=== PATIENT | female | born 1950 | race Caucasian/White ===

== ENCOUNTER 2018-01-10 07:15 | Outpatient (CLI) | payer MEDICARE, BC, SELFPAY ==
--- NOTE | 2018-01-10 07:48 | DI.RAD_ITS ---
SYMPTOM/DIAGNOSIS: RIGHT HIP PAIN M25.551 PELVIS AND RIGHT HIP: Comparison is made with 15 May 2012. The hip joint spaces are well maintained. There are no significant degenerative changes. No lytic or blastic lesions or soft tissue calcifications seen. IMPRESSION: Negative pelvis and right hip.
--- NOTE | 2018-01-10 07:48 | DI.RAD_ITS ---
SYMPTOM/DIAGNOSIS: CHRONIC LOW BACK PAIN, M54.5 LUMBAR SPINE: Comparison is made with 15 May 2012. There is stable mild narrowing of the L4-5 disc space. There are small end plate osteophytes of the inferior end plate of L4 with some adjacent sclerosis. The findings are not significantly changed. The remaining disc spaces as well as vertebral bodies are well maintained in height. There are mild facet degenerative changes at L4-5 and L5-S1. No spondylolysis, spondylolisthesis or scoliosis seen. IMPRESSION: Degenerative disc changes at L4-5
== END 2018-01-10 07:35 ==
PROVIDERS: PCP Family Medicine; Visit Provider Family Medicine
DX: M25.551 Pain in right hip (principal); M54.5 Low back pain; M51.36 Other intervertebral disc degeneration, lumbar region
CPT/HCPCS: 72110; 73502

== ENCOUNTER 2018-09-09 11:42 | Outpatient (CLI) | payer MEDICARE, BC, SELFPAY ==
[2018-09-09 12:34] LABS: Abs Immature Grans 0.01 k/cumm (0.0-0.09); Absolute Basophil Count 0.03 k/cumm (0.0-0.2); Absolute Eosinophil Count 0.06 k/cumm (0.0-0.7); Absolute Lymphocyte Count 1.02 k/cumm (1.2-3.4); Absolute Monocyte Count 0.46 k/cumm (0.11-0.7); Absolute Neutrophil Count 2.16 k/cumm (1.2-6.7); Basophils % 0.8; Eosinophils % 1.6; HCT 38.4 % (36.0-46.0); HGB 12.6 g/dL (12.0-15.5); Immature Grans % 0.3; Lymphocytes % 27.3; Mean Corp. HGB Concentration 32.8 g/dL (32.0-36.0); Mean Corpuscular Hemoglobin 32.6 pg (27.0-33.0); Mean Corpuscular Volume 99.5 fL (80-95); Mean Platelet Volume 10.4 fL (8.0-11.0); Monocytes % 12.3; Neutrophils % 57.7; Platelet Count 209 x1000/uL (130-400); RBC 3.86 m/cumm (4.00-5.20); RBC Distribution Width 12.3 % (11.7-14.6); White Blood Cell Count 3.74 k/cumm (4.4-10.8)
[2018-09-09 12:58] LABS: ALT 38 U/L (12-78); AST 28 U/L (15-37); Alkaline Phosphatase 83 U/L (46-116); Anion Gap 9.5 mmol/L (3-11); BUN 18 mg/dL (7-18); Bilirubin, Total 0.4 mg/dL (0.2-1.0); CO2 28.5 mmol/L (21.0-32.0); CREATININE 0.79 mg/dL (0.55-1.02); Calcium 9.1 mg/dL (8.5-10.1); Chloride 104 mmol/L (98-107); Glucose 93 mg/dL (70-100); Sodium 142 mmol/L (136-145)
== END 2018-09-09 12:02 ==
PROVIDERS: PCP Family Medicine; Visit Provider Family Medicine
DX: I10 Essential (primary) hypertension (principal); D72.9 Disorder of white blood cells, unspecified
CPT/HCPCS: 36415; 80053; 85025

== ENCOUNTER 2019-09-09 21:45 | Outpatient (REF) | payer MEDICARE, BC, SELFPAY ==
[2019-09-09 21:56] LABS: HGB 12.5 g/dL (11.2-15.7); MCH 32.2 pg (27.0-33.0); MCHC 32.1 % (32.0-36.0); MCV 100.5 fL (80-95); MPV 11.4 fL (8.0-11.0); Platelet Count 209 10^3/uL (130-400); RBC 3.88 10^6/uL (3.93-5.22); RDW 12.2 % (11.7-14.6); RDW-SD 44.2 fL; WBC 4.22 10^3/uL (4.4-10.8)
[2019-09-10 08:15] LABS: Iron 127 ug/dL (50-170)
[2019-09-10 08:26] LABS: ALT 30 U/L (14-59); AST 20 U/L (15-37); Alkaline Phosphatase 72 U/L (46-116); Anion Gap 7.6 mmol/L (3-11); BUN 23 mg/dL (7-18); Bilirubin, Total 0.3 mg/dL (0.2-1.0); CO2 27.4 mmol/L (21.0-32.0); CREATININE 1.07 mg/dL (0.55-1.02); Calcium 9.4 mg/dL (8.5-10.1); Calculated LDL 128 mg/dL (<100); Chloride 106 mmol/L (98-107); Cholesterol 257 mg/dL (<200); Estimated GFR 51.15 (mL/min/1.73m2); Ferritin 124 ng/mL (8-252); Glucose 102 mg/dL (74-106); HDL Cholesterol 72 mg/dL (40-60); Potassium 4.2 mmol/L (3.5-5.1); Sodium 141 mmol/L (136-145); TSH (W/Ref FT4) 2.55 uIU/mL (0.36-3.74); Triglyceride 288 mg/dL (<150)
[2019-09-11 06:05] LABS: Vitamin D 25 Total 38.2 ng/ml (30-100)
== END 2019-09-09 22:05 ==
LOC: LBN 21:45
PROVIDERS: PCP Family Medicine; Visit Provider Family Medicine
DX: D72.9 Disorder of white blood cells, unspecified (principal); E55.9 Vitamin D deficiency, unspecified; F32.9 Major depressive disorder, single episode, unspecified; F51.4 Sleep terrors [night terrors]; I10 Essential (primary) hypertension; R53.83 Other fatigue; D49.2 Neoplasm of unspecified behavior of bone, soft tissue, and skin; M81.0 Age-related osteoporosis without current pathological fracture
CPT/HCPCS: 80053; 80061; 82306; 85027; 82728; 83540; 84443

== ENCOUNTER 2020-08-23 19:05 | Outpatient (REF) | payer MEDICARE, BC, SELFPAY ==
[2020-08-23 19:37] LABS: Abs Immature Grans 0.01 10^3/uL (0.0-0.06); Absolute Basophil Count 0.03 10^3/uL (0.0-0.2); Absolute Lymphocyte Count 0.33 10^3/uL (1.2-3.4); Absolute Monocyte Count 0.42 10^3/uL (0.1-0.8); Absolute Neutrophil Count 3.25 10^3/uL (1.2-6.7); Basophils % 0.7; HCT 36.9 % (36.0-46.0); HGB 11.9 g/dL (11.2-15.7); Immature Grans % 0.2; Lymphocytes % 8.2; MCH 31.7 pg (27.0-33.0); MCHC 32.2 % (32.0-36.0); MCV 98.4 fL (80-95); MPV 11.3 fL (8.0-11.0); Monocytes % 10.4; Neutrophils % 80.5; Nucleated RBC 0 %; Platelet Count 135 10^3/uL (130-400); RBC 3.75 10^6/uL (3.93-5.22); RDW 12.6 % (11.7-14.6); RDW-SD 45.7 fL; WBC 4.04 10^3/uL (4.4-10.8)
[2020-08-25 10:54] LABS: Lyme Ab w Rflx to Lyme Confirm Negative (Negative)
[2020-08-26 15:33] LABS: Anaplasma phagocytophilum Negative (Negative); B. miyamotoi PCR Negative (Negative); Babesia divergens/MO-1 Negative (Negative); Babesia duncani Negative (Negative); Babesia microti Negative (Negative); Ehrlichia chaffeensis Negative (Negative); Ehrlichia ewingii/canis Negative (Negative); Ehrlichia muris eauclairensis Negative (Negative)
== END 2020-08-23 19:06 | disposition home or self-care (01) ==
LOC: LBN 19:05
PROVIDERS: PCP Family Medicine; Visit Provider Physician Assistant
DX: R21 Rash and other nonspecific skin eruption (principal)
CPT/HCPCS: 87798; 85025; 86618

== ENCOUNTER 2020-10-26 00:25 | Outpatient (CLI) | payer MEDICARE, BC, SELFPAY ==
--- OUTSIDE RECORDS SUMMARY | 2020-10-26 00:27 | XMS_ITS ---
:1950 Author Care Team Providers Name Role Phone SHIELA LIANG Primary Care Provider [phone] [facility]DS OTHER [phone] [facility] OTHER [phone] Allergies Code Code System Name Reaction Severity Status Onset NKDA ? Medications Name Status Start Date Stop Date ? ? azelastine 137 mcg-fluticasone 50 mcg spray,susp-NaCl 0.9% spray nasal Active ? Not available Take by nasal route. bupropion HCl XL 300 mg 24 hr tablet, extended release Active ? Not available Take 1 tablet every day by oral route. cholecalciferol (vit D3) 1,000 unit-vitamin K2 (MK4) 100 mcg tab let Active ? Not available Take by oral route. citalopram 10 mg tablet Completed ? 12/17/19 20 Take 1 tablet every day by oral route. clobetasol 0.05 % cream -gauze 4 X Active ? Not available 4-silicone adhesive topical kit melatonin 10 mg tablet Active ? Not avail able Take 1 tablet every day by oral route at bedtime. Multi Vitamin Active ? Not available mupirocin 2 % ointment topical kit Active ? Not available APPLY A SMALL AMOUNT TO THE AFFECTED AREA BY TOPICAL ROUTE 3 TI MES PER DAY ropinirole 1 mg tablet Active ? Not avail able take 1 PO 2-3 hours before bedtime Problems Name Status Onset Date Source ? 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 Vitamin D Deficiency Active 11/13/2019 ? 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 Depressive Disorder Active 11/13/2019 ? Hypertensive Disorder Active 11/13/2019 ? Atrophic Vaginitis Active 11/13/2019 ? Osteoporosis Active 11/13/2019 ? Complaining of - Postnasal Drip Active 11/13/2019 ? Adult Health Examination Active 11/13/2019 ? Insomnia Active 11/20/2019 ? Parasomnia Active 11/20/2019 ? 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 Dream Enactment Behavior Active 12/17/2019 ? Procedures None recorded. Results Lab Results None recorded. Past Encounters 02/18/2020 Dream Enactment Behavior; Periodic Limb Movement Disorder Karli Garcia BANJO REPAIRER: [address] [place] [phone], Ph. 12/17/2019 Dream Enactment Behavior; Periodic Limb Movement Disorder Karli Garcia BANJO REPAIRER: [address] [place] [phone], Ph. 11/20/2019 Parasomnia; Insomnia Karli Garcia BANJO REPAIRER: [address] [place] [phone], Ph. Social History Tobacco Smoking Status Unknown If Ever Smoked Vaccine List None recorded. Plan of Care Reminders Provider Appointments None ? ? recorded. Lab None ? ? recorded. Referral None ? ? recorded. Procedures None ? ? recorded. Surgeries None ? ? recorded. Imaging None ? ? recorded. Vitals 02/18/2020 09:30AM Office 30 Height Weight BMI 162.56 cm 56.7 kg 21.5 kg/m2 12/17/2019 11:15AM Office 30 Height Weight BMI Blood Pressure 162.56 cm 56.25 kg 21.3 kg/m2 118/76 mm[Hg] 11/20/2019 10:00AM New Patient 47 Height Weight BMI Blood Pressure 162.56 cm 56.47 kg 21.4 kg/m2 120/80 mm[Hg]
--- NOTE | 2020-10-26 07:00 | DI.US_ITS ---
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 COMPARISON: No exams were available for comparison FINDINGS: ABDOMINAL AORTA AND IVC: Visualized portions normal caliber. PANCREAS: Normal where visualized. LIVER: There is increased echogenicity of the liver consistent with fatty infiltration. No hepatic m ass is present. Hepatopedal flow in the Portal Vein. GALLBLADDER: No evidence of cholelithiasis. No evidence of wall thickening. No pericholecystic fluid identified. There is a small amount of gallbladder sludge. BILIARY SYSTEM: Common bile duct measures < 7 mm. No intrahepatic biliary ductal dilation. SANTIAGO'S SIGN: Negative. KIDNEYS: Kidneys are symmetric in size. No evidence of renal calculi. No evidence of hydronephrosis. No renal mass or cyst identified. SPLEEN: Not enlarged. ASCITES: None seen. IMPRESSION: 1. No sonographic evidence of a hepatic mass. 2. Fatty infiltration of the liver. DATA REPOSITORY:
--- NOTE | 2020-10-26 07:00 | DI.RAD_ITS ---
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 Two images were obtained. PA and lateral views were obtained. COMPARISON: No exams were available for comparison FINDINGS: MEDIASTINUM: Normal. HEART: Normal. PULMONARY VASCULATURE: Mild atherosclerosis and tortuosity of the thoracic aorta. LUNGS: Scarring in the left lung base. Otherwise clear lungs. No pulmonary nodules are seen. PLEURAL SPACE: No pleural effusion or pneumothorax. BONE:Within normal limits for the patient's age. OTHER FINDINGS:Findings of a prior breast implants. IMPRESSION: No acute pulmonary findings. DATA REPOSITORY: RADIATION DOSE DELIVERED:
== END 2020-10-26 00:45 ==
PROVIDERS: PCP Family Medicine; Visit Provider Family Medicine
DX: C69.90 Malignant neoplasm of unspecified site of unspecified eye (principal)
CPT/HCPCS: 71046; 76700

== ENCOUNTER 2020-10-26 01:45 | Outpatient (CLI) | payer MEDICARE, BC, SELFPAY ==
[2020-10-26 12:04] LABS: ALT 34 U/L (14-59); AST 23 U/L (15-37); Albumin 3.8 g/dL (3.4-5.0); Alkaline Phosphatase 81 U/L (46-116); Anion Gap 6.8 mmol/L (3-11); BUN 16 mg/dL (7-18); Bilirubin, Total 0.4 mg/dL (0.2-1.0); CO2 29.2 mmol/L (21.0-32.0); CREATININE 0.9 mg/dL (0.55-1.02); Calcium 8.5 mg/dL (8.5-10.1); Chloride 107 mmol/L (98-107); Glucose 160 mg/dL (74-106); Potassium 4.2 mmol/L (3.5-5.1); Sodium 143 mmol/L (136-145); Total Protein 6.9 g/dL (6.4-8.2)
== END 2020-10-26 01:46 | disposition home or self-care (01) ==
LOC: LBO 01:45
PROVIDERS: PCP Family Medicine; Visit Provider Family Medicine
DX: C69.90 Malignant neoplasm of unspecified site of unspecified eye (principal)
CPT/HCPCS: 36415; 80053; 71046; 76700

== ENCOUNTER 2021-11-28 03:26 | Outpatient (CLI) | payer MEDICARE, BC, SELFPAY ==
[2021-11-28 12:19] LABS: HCT 40.2 % (36.0-46.0); MCHC 32.3 % (32.0-36.0); MCV 99 fL (80-95); MPV 10.4 fL (8.0-11.0); Platelet Count 235 10^3/uL (130-400); RBC 4.06 10^6/uL (3.93-5.22); RDW 12.7 % (11.7-14.6); RDW-SD 46.5 fL; WBC 3.67 10^3/uL (4.4-10.8)
[2021-11-28 12:48] LABS: ALT 33 U/L (14-59); AST 24 U/L (15-37); Albumin 4.2 g/dL (3.4-5.0); Alkaline Phosphatase 81 U/L (46-116); Anion Gap 7.7 mmol/L (3-11); BUN 17 mg/dL (7-18); Bilirubin, Total 0.8 mg/dL (0.2-1.0); CO2 31.3 mmol/L (21.0-32.0); Calcium 9.4 mg/dL (8.5-10.1); Calculated LDL 152 mg/dL (<100); Chloride 102 mmol/L (98-107); Cholesterol 280 mg/dL (<200); Estimated GFR 60.98 (mL/min/1.73m2); Glucose 130 mg/dL (74-106); HDL Cholesterol 91 mg/dL (40-60); Potassium 3.5 mmol/L (3.5-5.1); Sodium 141 mmol/L (136-145); TSH (W/Ref FT4) 3.87 uIU/mL (0.36-3.74); Total Protein 7.9 g/dL (6.4-8.2); Triglyceride 188 mg/dL (<150)
[2021-11-28 13:11] LABS: FREE T4 0.79 ng/dL (0.76-1.46)
== END 2021-11-28 03:27 | disposition home or self-care (01) ==
LOC: LOS 03:27
PROVIDERS: PCP Family Medicine; Visit Provider Family Medicine
DX: I10 Essential (primary) hypertension (principal); F32.89 Other specified depressive episodes
CPT/HCPCS: 36415; 80053; 80061; 85027; 84439; 84443

== ENCOUNTER → 2021-12-01 03:11 | Outpatient (CLI) | payer MEDICARE, BC, SELFPAY ==
--- NOTE | 2021-12-01 06:45 | DI.US_ITS ---
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 COMPARISON: US US ABDOMEN from 10/26/2020 FINDINGS: ABDOMINAL AORTA AND IVC: Visualized portions normal caliber. PANCREAS: Normal where visualized. LIVER: There is diffuse increased echogenicity of the liver consistent with fatty infiltration. The liver measures 14 cm long. Hepatopedal flow in the Portal Vein. GALLBLADDER:No evidence of cholelithiasis. No evidence of wall thickening. No pericholecystic fluid i dentified. BILIARY SYSTEM: Common bile duct measures < 7 mm. No intrahepatic biliary ductal dilation. SANTIAGO'S SIGN: Negative. KIDNEYS: Kidneys are symmetric in size. No evidence of renal calculi. No evidence of hydronephrosis. No renal mass or cyst identified. SPLEEN: Not enlarged. ASCITES: None seen. IMPRESSION: 1. Fatty infiltration of the liver. 2. No evidence of a hepatic mass. DATA REPOSITORY:
== END ==
PROVIDERS: PCP Family Medicine; Visit Provider Family Medicine
DX: K76.0 Fatty (change of) liver, not elsewhere classified
CPT/HCPCS: 76700

== ENCOUNTER 2021-12-08 10:27 | Outpatient (CLI) | payer MEDICARE, BC, SELFPAY ==
[2021-12-08 12:36] LABS: Hemoglobin A1C 5.7 % (<5.7)
[2021-12-08 13:08] LABS: Vitamin B12 596 pg/mL (193-986)
== END 2021-12-08 10:28 | disposition home or self-care (01) ==
LOC: LOS 10:28
PROVIDERS: PCP Family Medicine; Visit Provider Family Medicine
DX: E11.9 Type 2 diabetes mellitus without complications (principal); G62.9 Polyneuropathy, unspecified
CPT/HCPCS: 36415; 82607; 83036

== ENCOUNTER → 2021-12-15 02:35 | Outpatient (CLI) | payer MEDICARE, BC, SELFPAY ==
--- NOTE | 2021-12-15 08:30 | DI.DEXA_ITS ---
Exam(s) XR DEXA BONE DENSITY W/WO KATHLEEN EXAM: XR DEXA BONE DENSITY W/WO KATHLEEN CLINICAL HISTORY: osteoporosis,m81.0 TECHNIQUE: COMPARISON: No exams were available for comparison FINDINGS: Lateral Spine Image: Unremarkable. No compression deformities identified. Left hip: Total T-Score: -1.8 Total Z-Score: -0.3 T- and Z-scores: Findings are consistent with osteopenia. Note is made of osteoporosis in the left f emoral neck with a T-score of -2.5. Lumbar Spine: Total T-Score: -3.9 Total Z-Score: -1.9 T- and Z-scores: Within normal limits. IMPRESSION: Osteoporosis in the lumbar spine and left hip as described.
== END ==
PROVIDERS: PCP Family Medicine; Visit Provider Family Medicine
DX: M81.0 Age-related osteoporosis without current pathological fracture (principal); Z13.820 Encounter for screening for osteoporosis
CPT/HCPCS: 77080

== ENCOUNTER 2022-05-22 02:30 | Outpatient (CLI) | payer MEDICARE, BC, SELFPAY ==
[2022-05-22 12:50] LABS: ALT 35 U/L (14-59); AST 25 U/L (15-37); Albumin 3.9 g/dL (3.4-5.0); Alkaline Phosphatase 72 U/L (46-116); Anion Gap 8.7 mmol/L (3-11); BUN 23 mg/dL (7-18); Bilirubin, Total 0.6 mg/dL (0.2-1.0); CO2 30.3 mmol/L (21.0-32.0); Calcium 9.3 mg/dL (8.5-10.1); Calculated LDL 80 mg/dL (<100); Chloride 104 mmol/L (98-107); Cholesterol 191 mg/dL (<200); Estimated GFR 60.98 (mL/min/1.73m2); Glucose 153 mg/dL (74-106); HDL Cholesterol 82 mg/dL (40-60); Potassium 3.3 mmol/L (3.5-5.1); Sodium 143 mmol/L (136-145); TSH (W/Ref FT4) 2.45 uIU/mL (0.36-3.74); Total Protein 7.6 g/dL (6.4-8.2); Triglyceride 148 mg/dL (<150)
== END 2022-05-22 02:31 | disposition home or self-care (01) ==
LOC: LOS 02:30
PROVIDERS: PCP Family Medicine; Visit Provider Family Medicine
DX: E03.9 Hypothyroidism, unspecified (principal)
CPT/HCPCS: 36415; 80053; 80061; 84443

== ENCOUNTER 2022-11-07 01:32 | Outpatient (CLI) | payer MEDICARE, BC, SELFPAY ==
[2022-11-07 12:37] LABS: ALT 43 U/L (14-59); AST 33 U/L (15-37); Albumin 3.6 g/dL (3.4-5.0); Alkaline Phosphatase 59 U/L (46-116); Anion Gap 7.2 mmol/L (3-11); BUN 17 mg/dL (7-18); Bilirubin, Total 0.5 mg/dL (0.2-1.0); CO2 28.8 mmol/L (21.0-32.0); CREATININE 0.9 mg/dL (0.55-1.02); Calcium 9.2 mg/dL (8.5-10.1); Chloride 104 mmol/L (98-107); Estimated GFR 68.77 (mL/min/1.73m2); Potassium 3.5 mmol/L (3.5-5.1); Sodium 140 mmol/L (136-145); TSH (W/Ref FT4) 1.89 uIU/mL (0.36-3.74); Total Protein 7.2 g/dL (6.4-8.2)
[2022-11-07 12:42] LABS: Glucose 123 mg/dL (74-106)
== END 2022-11-07 01:33 | disposition home or self-care (01) ==
LOC: LOS 01:33
PROVIDERS: PCP Family Medicine; Visit Provider Family Medicine
DX: E03.9 Hypothyroidism, unspecified (principal); E78.5 Hyperlipidemia, unspecified; F32.A Depression, unspecified; I10 Essential (primary) hypertension
CPT/HCPCS: 36415; 80053; 84443

== ENCOUNTER → 2023-06-25 04:05 | Outpatient (CLI) | payer MEDICARE, BC, SELFPAY ==
--- NOTE | 2023-06-25 06:15 | DI.US_ITS ---
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 COMPARISON: US US ABDOMEN from 12/01/2021 FINDINGS: There is no ascites evident. LIVER: Liver is somewhat hyperechoic indicating steatosis. There no discrete focal hepatic lesions. GALLBLADDER/BILIARY: There are no gallstones. No gallbladder wall edema nor pericholecystic fluid. The common hepatic duct isnot dilated, measuring 3-4mm at the level of gulshan hepatis. PANCREAS: There is no evidence of pancreatic mass nor dilatation of the pancreatic duct. RIGHT KIDNEY:No evidence of solid mass, calculus, nor hydronephrosis. No cortical cysts evident. IMPRESSION: 1. No evidence of cholelithiasis nor dilatation of the biliary tree. 2. Hepatic steatosis. No discrete focal hepatic lesions. 3. No other right upper quadrant findings and there is no ascites evident. DATA REPOSITORY:
== END ==
PROVIDERS: PCP Family Medicine; Visit Provider Family Medicine
DX: K76.0 Fatty (change of) liver, not elsewhere classified (principal)
CPT/HCPCS: 76705

== ENCOUNTER 2023-11-13 03:16 | Outpatient (CLI) | payer MEDICARE, BC, SELFPAY ==
[2023-11-13 12:31] LABS: Hemoglobin A1C 5.6 % (<5.7)
[2023-11-13 13:02] LABS: ALT 36 U/L (14-59); AST 33 U/L (15-37); Alkaline Phosphatase 57 U/L (46-116); BUN 16 mg/dL (7-18); Bilirubin, Total 0.65 mg/dL (0.2-1.0); Calcium 9.2 mg/dL (8.5-10.1); Calculated LDL 86 mg/dL (<100); Chloride 106 mmol/L (98-107); Cholesterol 205 mg/dL (<200); Estimated GFR 60.23 (mL/min/1.73m2); Glucose 100 mg/dL (74-106); HDL Cholesterol 99 mg/dL (40-60); Potassium 4.1 mmol/L (3.5-5.1); Sodium 145 mmol/L (136-145); TSH (W/Ref FT4) 2.12 uIU/mL (0.36-3.74); Total Protein 7.5 g/dL (6.4-8.2); Triglyceride 103 mg/dL (<150); Vitamin B12 574 pg/mL (193-986); Vitamin D 25 Total 42.2 ng/mL (30-100)
== END 2023-11-13 03:17 | disposition home or self-care (01) ==
LOC: LOS 03:16
PROVIDERS: PCP Family Medicine; Visit Provider Family Medicine
DX: I10 Essential (primary) hypertension (principal); M81.0 Age-related osteoporosis without current pathological fracture; E03.9 Hypothyroidism, unspecified; E11.9 Type 2 diabetes mellitus without complications; Z23 Encounter for immunization
CPT/HCPCS: 36415; 80053; 80061; 82306; 82607; 83036; 84443

== ENCOUNTER 2024-06-09 07:13 | Outpatient (RCR) | payer MEDICARE, BC, SELFPAY ==
[2024-06-09] MEDS: Denosumab 60 MG/ML SYR SC (09:10)
== END 2024-07-05 23:59 | disposition home or self-care (01) ==
LOC: INF 07:13
PROVIDERS: PCP Family Medicine; Visit Provider Family Medicine
DX: M81.0 Age-related osteoporosis without current pathological fracture (principal)
CPT/HCPCS: 96372; J0897

== ENCOUNTER 2024-06-23 02:47 | Outpatient (CLI) | payer MEDICARE, BC, SELFPAY ==
--- NOTE | 2024-06-23 07:15 | DI.US_ITS ---
Exam(s) US CAROTID EXAM: US CAROTID CLINICAL HISTORY: ? whoosing in ear,lt carotid bruit,r09.89. TECHNIQUE: Ultrasound carotids performed using grayscale, color-flow, and spectral Doppler imaging. COMPARISON: No exams were available for comparison FINDINGS: RIGHT CAROTID ARTERY: Plaque: None Velocity elevation: None. LEFT CAROTID ARTERY: Plaque: None Velocity elevation: None. VERTEBRAL ARTERIES: Antegrade flow. Measurements: R Bulb: 57.3cm/s PS / 19.1cm/s ED R CCA: 64.4cm/s PS / 28.3cm/s ED R ECA: 62.4cm/s PS / 16.2cm/s ED R ICA Prox: 67.4cm/s PS / 31.8cm/s ED R ICA Mid: 66.3cm/s PS / 33.4cm/s ED R ICA Distal: 76cm/s PS /37.9cm/s ED R Vert: 54.4cm/s PS / 24.6cm/s ED R SVR: 1.2 R DVR: 1.3 L Bulb: 64.4cm/s PS / 26.9cm/s ED L CCA: 69.4cm/s PS / 31.8cm/s ED L ECA: 77.6cm/s PS / 18.4cm/s ED L ICA Prox: 68.5cm/s PS / 32.8cm/s ED L ICA Mid: 63.6cm/s PS / 30.8cm/s ED L ICA Distal: 73.1cm/s PS / 34.5cm/s ED L Vert: 32.2cm/s PS / 12.5cm/s ED L SVR: 1.1 L DVR: 1.1 IMPRESSION: No visible plaque. No evidence for hemodynamically significant carotid stenosis. Criteria for Carotid Stenosis: Normal: ICA PSV <125 cm/s no plaque or intimal thickening is visible. <50% stenosis: ICA PSV <125 cm/s and plaque or intimal thickening is visible. 50-69% stenosis: ICA PSV is 125-250 cm/s and plaque is visible. >70% stenosis to near occlusion: ICA PSV >250 cm/s with visible plaque and luminal narrowing. DATA REPOSITORY:
== END 2024-06-23 03:07 ==
LOC: DI 02:47
PROVIDERS: PCP Family Medicine; Visit Provider Family Medicine
DX: R09.89 Other specified symptoms and signs involving the circulatory and respiratory systems (principal)
CPT/HCPCS: 93880

== ENCOUNTER 2024-07-09 01:07 | Outpatient (CLI) | payer MEDICARE, BC, SELFPAY ==
--- NOTE | 2024-07-09 06:15 | DI.US_ITS ---
Exam(s) US ABDOMEN EXAM: US ABDOMEN CLINICAL HISTORY: ocular melana , assess liver for mets,C69.90 TECHNIQUE: Ultrasound abdomen performed using standard protocol. COMPARISON: US US ABDOMEN LIMITED from 06/25/2023 FINDINGS: ABDOMINAL AORTA AND IVC: Visualized portions normal caliber. PANCREAS: Normal where visualized. LIVER: There is increased echogenicity of the liver consistent with fatty infiltration. Hepatopetal flow in the Portal Vein. No evidence of a hepatic mass. The liver measures 17.2cm long. GALLBLADDER:No evidence of cholelithiasis. No evidence of wall thickening. No pericholecystic fluid i dentified. BILIARY SYSTEM: Common bile duct measures < 7 mm. No intrahepatic biliary ductal dilation. SANTIAGO'S SIGN: Negative. KIDNEYS: Kidneys are symmetric in size. No evidence of renal calculi. No evidence of hydronephrosis. No renal mass or cyst identified. SPLEEN: Not enlarged. ASCITES: None seen. IMPRESSION: 1. Hepatic steatosis. 2. No sonographic evidence of a hepatic mass. DATA REPOSITORY:
== END 2024-07-09 01:27 ==
LOC: DI 01:07
PROVIDERS: PCP Family Medicine; Visit Provider Family Medicine
DX: C69.31 Malignant neoplasm of right choroid (principal); K76.0 Fatty (change of) liver, not elsewhere classified
CPT/HCPCS: 76700

== ENCOUNTER 2024-12-01 00:32 | Outpatient (CLI) | payer MEDICARE, BC, SELFPAY ==
[2024-12-01 15:15] LABS: ALT 44 U/L (14-59); AST 37 U/L (15-37); Albumin 4.1 g/dL (3.4-5.0); Alkaline Phosphatase 52 U/L (46-116); Anion Gap 11.5 mmol/L (3-11); BUN 22 mg/dL (7-18); Bilirubin, Total 0.7 mg/dL (0.2-1.0); CO2 29.5 mmol/L (21.0-32.0); Calcium 9.2 mg/dL (8.5-10.1); Calculated LDL 99 mg/dL (<100); Chloride 99 mmol/L (98-107); Cholesterol 227 mg/dL (<200); Estimated GFR 67.92 (mL/min/1.73m2); Glucose 135 mg/dL (74-106); HDL Cholesterol 89 mg/dL (>or=50); Potassium 3.7 mmol/L (3.5-5.1); Sodium 140 mmol/L (136-145); TSH (W/Ref FT4) 1.80 uIU/mL (0.36-3.74); Total Protein 7.7 g/dL (6.4-8.2); Triglyceride 195 mg/dL (<150)
[2024-12-02 10:26] LABS: Hepatitis C Ab w Rflx HCV PCR Negative (Negative)
== END 2024-12-01 00:33 | disposition home or self-care (01) ==
LOC: LOS 00:32
PROVIDERS: PCP Family Medicine; Visit Provider Family Medicine
DX: Z11.59 Encounter for screening for other viral diseases (principal); C69.90 Malignant neoplasm of unspecified site of unspecified eye; I10 Essential (primary) hypertension; E03.9 Hypothyroidism, unspecified
CPT/HCPCS: 36415; 80053; 80061; 86803; 84443